=== PATIENT | female | born 1970 | race Caucasian/White ===

== ENCOUNTER → 2020-04-15 | Outpatient (CLI) | payer OTHER ==
[~2020-04-15] MED LIST: ASPI81CH PO; Doxycycline Mo100 M1 PO; LISI20 PO; SULTRIDS PO
== END ==
LOC: LAB SHORT 14:32
DX: N39.0 Urinary tract infection, site not specified (principal)
CPT/HCPCS: 87077; 87086; 87186

== ENCOUNTER 2020-10-02 17:37 | Observation (INO) | payer OTHER ==
[~2020-10-02] VITALS: Ht 152.4 cm; Wt 78.2 kg
--- NOTE | 2020-10-03 | NUR ---
PT ARRIVED AT THE UNIT WITH BELONGING. ALERT AND ORIENTED X4. PT TRANSFERED FROM [facility] TO BED. DENIED CHEST PAIN OR SOB. VITALS STABLE AND AT ROOM AIR WITH SATS ABOVE 92%. PT STS HAVING SHARP POUNDING HEADACHE AND MEDICATED PER EMAR. CALL LIGHT IS WITHIN REACH. WILL CONTINUE TO MONITOR.
[2020-10-03 04:25] LABS: BASOPHILS ABSOLUTE AUTO 0.04 K/mm3 (0.00-0.23); BASOPHILS PERCENT AUTO 1 % (0-2); EOSINOPHILS ABSOLUTE AUTO 0.15 K/mm3 (0.00-0.68); EOSINOPHILS PERCENT AUTO 2 % (0-6); Hematocrit 40.7 % (33.0-51.0); Hemoglobin 13.9 g/dL (11.5-16.0); IMMATURE GRAN ABSOLUTE AUTO 0.05 K/mm3 (0.00-0.10); IMMATURE GRAN PERCENT AUTO 1 % (0-1); LYMPHOCYTES ABSOLUTE AUTO 1.92 K/mm3 (0.84-5.20); LYMPHOCYTES PERCENT AUTO 22 % (21-46); MONOCYTES ABSOLUTE AUTO 0.53 K/mm3 (0.16-1.47); MONOCYTES PERCENT AUTO 6 % (4-13); Mean Corpuscular HGB Conc 34.2 g/dL (31.5-36.5); Mean Corpuscular Volume 88 fL (80-100); Mean Platelet Volume 10.4 fL (9.1-12.4); NEUTROPHILS ABSOLUTE AUTO 6.15 K/mm3 (1.96-9.15); NEUTROPHILS PERCENT AUTO 70 % (41-73); Platelet Count 271 K/mm3 (150-400); RDW Standard Deviation 38.5 fL (35.1-46.3); Red Blood Cell Count 4.63 M/mm3 (3.80-5.20); White Blood Cell Count 8.84 K/mm3 (4.00-11.30)
--- NOTE | 2020-10-03 04:25 | NUR ---
PT IS ALERT AND ORIENTED STS CHEST PAON IS EITHER A 0 OR 1 OT OF 10. STS THAT SHE FEELS SOB WHEN TAKING IN DEEP BREATHS. DENIES TENDERNESS OR PAIN IN CALVES/LEGS. WILL CONTINUE TO MINITOR.
[2020-10-03 04:46] LABS: Alanine Aminotransfer (ALT/SGP 110 U/L (12-78); Albumin, Blood 3.2 g/dL (3.4-5.0); Albumin/Globulin Ratio 0.9 (0.8-1.8); Alk Phos 76 U/L (50-136); Anion Gap 5 mmol/L (6-16); Aspartate Aminotrans (AST/SGOT 20 U/L (12-37); Bilirubin, Total 0.3 mg/dL (0.1-1.0); Blood Urea Nitrogen 18 mg/dL (8-24); Bun/Creatinine Ratio 25.6 (12.0-20.0); CO2, Blood 29 mmol/L (21-32); Calcium, Blood 8.6 mg/dL (8.5-10.1); Chloride, Blood 103 mmol/L (98-108); Globulin, Blood 3.7 g/dL (2.2-4.0); Glomerular Filtration Rate >60 (60-); Glucose, Blood 115 mg/dL (70-99); Potassium, Blood 3.6 mmol/L (3.5-5.5); Sodium, Blood 137 mmol/L (136-145); Total Protein, Blood 6.9 g/dL (6.4-8.2)
--- NOTE | 2020-10-03 06:11 | NUR ---
SHIFT SUMMARY PT IS ALERT AND ORIENTED X4. VITALS ARE STABLE WITH SATS ABOVE 92% ON ROOM AIR. THERE HAVE BEEN NO ACUTE CHANGES. PT REPORTED THROBBING SHAP HEADACHE AND WAS MEDICATED PER EMAR. PT CAME TO FLOOR WITH NITRO PASTE ON CHEST REPORTS THAT CHEST PAIN IS 0 TO 1 OUT OF 10. REPORTS BEING SOB WHEN TAKING DEEP BREATHES. PT HAS BEEN ADVISED TO CALL FOR HELP WHEN NEEDING TO USE TE BATHROOM, SHE HAS NOT VOIDED THIS SHIFT. CALL LIGHT IS WITHIN REACH.
--- NOTE | 2020-10-03 18:51 | NUR ---
PT REPORTED H/A 1X AND RECEIVED ANALGESIC RX 1X PER JUN; PT ASSISTED TO BATHROOM 2X AND VOIDED CLEAR YELLOW URINE; PT WILL BE NPO FOR CARDIAC STRESS TEST AFTER MIDNIGHT; PT ON RA, VSS, NGUYEN EQUALLY AND SBA TO BATHROOM; PT DENIES ADDITIONAL CONCERNS AT THIS TIME; UPDATES PROVIDED VIA PHONE TO DR. BLACK AT [id number]
--- NOTE | 2020-10-04 05:59 | NUR ---
SHIFT SUMMARY PT IS ALERT AND ORIENTED. VITALS ARE STABLE AND IS ON ROOM AIR WITH SATS ABOVE 92%. NO ACUTE CHANGES. DENIES CHEST PAIN OR SOB. PT IS AD KARLI IN ROOM. USING CALL LIGHT APROPRIETLY.
--- NOTE | 2020-10-04 12:23 | NUR ---
LEXISCAN PERFORMED WITH 0.4MG IV LEXISCAN. PT REVERSED WITH AMINOPHYLLINE AT 00:23 INTO RECOVERY FOR SHORTNESS OF BREATH AND HEADACHE. SYMPTOMS RESOLVED AT 5:00 INTO RECOVERY.UNABLE TO DOCUMENT MEDS IN EMR.
[2020-10-04] MEDS ORDERED: ASPI81CH PO (14:56)
[2020-10-04] MEDS ORDERED: LISI20 PO (14:56)
[2020-10-04] MEDS ORDERED: Doxycycline Mo100 M1 PO (15:53)
[2020-10-04] MEDS ORDERED: SULTRIDS PO (16:32)
--- NOTE | 2020-10-04 17:17 | NUR ---
PT HAD FINAL COMPONENTS OF CARDIAC STRESS TEST PERFORMED; DR. FERNANDEZ DISCUSSED RESULTS WITH PT AT BEDSIDE AND PLACED DISCHARGE ORDERS; PT'S DISCHARGE TEACHING DISCUSSED IN PERSON AT 1517; IV REMOVED AT 1521; ADDITIONAL ORDERS FOR ABX PLACED AND FAXED TO PT'S PHARMACY; TELEMETRY DISCONTINUED AT 1550; PT DISCHARGED FROM UNIT AT 1607; PT TRANSFERRED TO [facility] ER AT HER REQUEST WHILE SHE WAITED FOR FAMILY MEMBER IN PERSONAL VEHICLE TO PICK HER UP; PT ACCOMPANIED BY PERSONAL EFFECTS, RN, AND NO MONITORING, INFUSIONS, OR OXYGEN THERAPY VIA WHEELCHAIR; PT DENIED ADDITIONAL CONCERNS AT THIS TIME
== END 2020-10-04 16:03 | disposition home or self-care (01) ==
LOC: ER 17:37 → PCU 17:38 → ER 21:58 → PCU 23:37
PROVIDERS: Nurse Practitioner Acute Care; ADMIT Internal Medicine
DX: I16.1 Hypertensive emergency (principal); I10 Essential (primary) hypertension; R77.8 Other specified abnormalities of plasma proteins; N61.1 Abscess of the breast and nipple; B95.62 Methicillin resistant Staphylococcus aureus infection as the cause of diseases classified elsewhere
CPT/HCPCS: 36415; 71046; 71275; 74175; 78452; 80053; 84443; 84484; 85025; 85379; 87070; 87075; 87077; 87186; 87205; 93005; 93010; 93017; 94762; 96374-59; 96376; 99285-25; A9270; A9500; G0378; J0280; J1644; J2785; J3010; Q9967

== ENCOUNTER → 2020-10-02 | Outpatient (CLI) | payer OTHER ==
[2020-10-02 16:38] LABS: BASOPHILS ABSOLUTE AUTO 0.03 K/mm3 (0.00-0.23); BASOPHILS PERCENT AUTO 0 % (0-2); EOSINOPHILS PERCENT AUTO 2 % (0-6); Hematocrit 43.7 % (33.0-51.0); IMMATURE GRAN ABSOLUTE AUTO 0.05 K/mm3 (0.00-0.10); IMMATURE GRAN PERCENT AUTO 1 % (0-1); LYMPHOCYTES ABSOLUTE AUTO 2.61 K/mm3 (0.84-5.20); LYMPHOCYTES PERCENT AUTO 28 % (21-46); MONOCYTES ABSOLUTE AUTO 0.64 K/mm3 (0.16-1.47); MONOCYTES PERCENT AUTO 7 % (4-13); Mean Corpuscular HGB 30.3 pg (26.0-34.0); Mean Corpuscular HGB Conc 34.3 g/dL (31.5-36.5); Mean Corpuscular Volume 88 fL (80-100); Mean Platelet Volume 10.2 fL (9.1-12.4); NEUTROPHILS ABSOLUTE AUTO 5.83 K/mm3 (1.96-9.15); NEUTROPHILS PERCENT AUTO 62 % (41-73); Platelet Count 290 K/mm3 (150-400); RDW Coefficient Variation 12.2 % (11.7-14.2); RDW Standard Deviation 39.7 fL (35.1-46.3); Red Blood Cell Count 4.95 M/mm3 (3.80-5.20); White Blood Cell Count 9.36 K/mm3 (4.00-11.30)
[2020-10-02 17:02] LABS: Alanine Aminotransfer (ALT/SGP 135 U/L (12-78); Albumin, Blood 3.4 g/dL (3.4-5.0); Albumin/Globulin Ratio 0.8 (0.8-1.8); Alk Phos 97 U/L (40-126); Anion Gap 8 mmol/L (6-16); Aspartate Aminotrans (AST/SGOT 28 U/L (12-37); Bilirubin, Total 0.2 mg/dL (0.1-1.0); Blood Urea Nitrogen 19 mg/dL (8-24); Bun/Creatinine Ratio 23.2 (12.0-20.0); CO2, Blood 29 mmol/L (21-32); Calcium, Blood 8.8 mg/dL (8.5-10.1); Chloride, Blood 103 mmol/L (98-108); Creatinine, Blood 0.82 mg/dL (0.40-1.00); Globulin, Blood 4.1 g/dL (2.2-4.0); Glomerular Filtration Rate >60 (60-); Glucose, Blood 102 mg/dL (70-99); Potassium, Blood 3.7 mmol/L (3.5-5.5); Sodium, Blood 140 mmol/L (136-145); Thyroid Stimulating Hormone 3.911 uIU/mL (0.360-4.800); Total Protein, Blood 7.5 g/dL (6.4-8.2)
== END | disposition home or self-care (01) ==
LOC: LAB 16:33 → LAB SHORT 16:33
PROVIDERS: Chiropractor
DX: R07.9 Chest pain, unspecified (principal); L08.9 Local infection of the skin and subcutaneous tissue, unspecified
CPT/HCPCS: 80053; 84443; 84484; 85025; 85379; 87070; 87075; 87077; 87186; 87205

== ENCOUNTER → 2022-03-24 | Outpatient (CLI) | payer OTHER ==
[2022-03-24 19:36] LABS: BASOPHILS ABSOLUTE AUTO 0.05 K/mm3 (0.00-0.23); BASOPHILS PERCENT AUTO 1 % (0-2); EOSINOPHILS ABSOLUTE AUTO 0.22 K/mm3 (0.00-0.68); EOSINOPHILS PERCENT AUTO 3 % (0-6); Hematocrit 44.9 % (33.0-51.0); Hemoglobin 15.3 g/dL (11.5-16.0); IMMATURE GRAN ABSOLUTE AUTO 0.02 K/mm3 (0.00-0.10); IMMATURE GRAN PERCENT AUTO 0 % (0-1); LYMPHOCYTES ABSOLUTE AUTO 2.43 K/mm3 (0.84-5.20); LYMPHOCYTES PERCENT AUTO 30 % (21-46); MONOCYTES ABSOLUTE AUTO 0.55 K/mm3 (0.16-1.47); MONOCYTES PERCENT AUTO 7 % (4-13); Mean Corpuscular HGB 29.9 pg (26.0-34.0); Mean Corpuscular HGB Conc 34.1 g/dL (31.5-36.5); Mean Corpuscular Volume 88 fL (80-100); Mean Platelet Volume 10.2 fL (9.1-12.4); NEUTROPHILS ABSOLUTE AUTO 4.87 K/mm3 (1.96-9.15); NEUTROPHILS PERCENT AUTO 60 % (41-73); Platelet Count 321 K/mm3 (150-400); RDW Coefficient Variation 12.1 % (11.7-14.2); Red Blood Cell Count 5.12 M/mm3 (3.80-5.20); White Blood Cell Count 8.14 K/mm3 (4.00-11.30)
[2022-03-24 21:00] LABS: Alanine Aminotransfer (ALT/SGP 39 U/L (12-78); Albumin, Blood 3.5 g/dL (3.4-5.0); Albumin/Globulin Ratio 0.9 (0.8-1.8); Alk Phos 68 U/L (50-136); Anion Gap 6 mmol/L (6-16); Aspartate Aminotrans (AST/SGOT 23 U/L (12-37); Bilirubin, Total 0.4 mg/dL (0.1-1.0); Blood Urea Nitrogen 21 mg/dL (8-24); Bun/Creatinine Ratio 26.7 (12.0-20.0); CHOL/HDL RATIO 3.2; CO2, Blood 28 mmol/L (21-32); Calcium, Blood 8.7 mg/dL (8.5-10.1); Chloride, Blood 104 mmol/L (98-108); Cholesterol 120 mg/dL (50-200); Creatinine, Blood 0.79 mg/dL (0.40-1.00); Globulin, Blood 3.8 g/dL (2.2-4.0); Glomerular Filtration Rate 91 (60-); Glucose, Blood 103 mg/dL (70-99); HDL Cholesterol 38 mg/dL (>39); LDL/HDL RATIO 1.2; Low Density Lipoprotein Chol 46 mg/dL (0-110); Potassium, Blood 4.3 mmol/L (3.5-5.5); Sodium, Blood 138 mmol/L (136-145); Total Protein, Blood 7.3 g/dL (6.4-8.2); Triglycerides 181 mg/dL (30-160); Very Low Density Lipoprot Chol 36 mg/dL (6-32)
== END | disposition home or self-care (01) ==
LOC: LAB SHORT 10:45
PROVIDERS: Family Medicine
DX: I10 Essential (primary) hypertension (principal)
CPT/HCPCS: 80053; 80061; 84443; 85025